=== PATIENT | male | born 1995 | race Caucasian/White ===

== ENCOUNTER → 2024-12-19 11:05 | Outpatient (CLI) | payer OTHER, SELFPAY ==
--- NOTE | 2024-12-19 11:07 | DI.RAD.S_ITS ---
PROCEDURE: XR SHOULDER LT MIN 2V INDICATIONS: left shoulder strain TECHNIQUE: Three views of the left shoulder were acquired. COMPARISON: None. FINDINGS: Bones: There are no osseous abnormalities. Acromioclavicular and glenohumeral joints: Normal in width and alignment without arthritic change Soft tissues: No soft tissue swelling, calcification or mass. IMPRESSION: Normal shoulder Dictated by: Gus Parker M.D. on 12/20/2024 at 9:15 Approved by: Gus Parker M.D. on 12/20/2024 at 9:15
== END ==
PROVIDERS: Referring Provider Nurse Practitioner Family; Visit Provider Nurse Practitioner Family
DX: S46.912A Strain of unspecified muscle, fascia and tendon at shoulder and upper arm level, left arm, initial encounter (principal); X58.XXXA Exposure to other specified factors, initial encounter
CPT/HCPCS: 73030

== ENCOUNTER 2025-02-06 00:31 | Emergency (ER) | payer SELFPAY ==
[2025-02-06 00:43] VITALS: BP 131/75; PULSE 97; RESP 18; TEMP 36.3; O2SAT 96; BMI 28.1
--- NOTE | 2025-02-06 06:28 | ED.SKABFB ---
HPI - Skin/Abscess/Foreign Bdy General Chief complaint: Skin/Abscess/Foreign Body Stated complaint: redness on both forearms Time Seen by Provider: 02/06/25 06:12 Source: patient Mode of arrival: Ambulatory History of Present Illness HPI narrative: 29yo male has complaint bilaeral arms skin rash for last weeks, no eczema or psoriasis recalled, no other areas affected, works at [employer], frequent hands arm washing. Sometimes itching, sometimes painful. Related Data Previous Rx's Medication Instructions Recorded cephalexin 500 mg capsule 500 mg PO BID #20 caps 01/05/25 hydrocortisone 1 % topical cream 1 applic topical BID-QID PRN 01/05/25 (Cortisone (hydrocortisone)) allergic reaction #28.4 grams mupirocin 2 % topical ointment 1 applic topical TID #22 grams 01/05/25 cephalexin 500 mg capsule 500 mg PO QID 7 days #28 caps 02/06/25 prednisone 20 mg tablet 40 mg (2 x 20 mg) PO DAILY 5 days 02/06/25 #10 tabs triamcinolone acetonide 0.1 % 1 applic topical BID #80 grams 02/06/25 topical ointment Allergies Allergy/AdvReac Type Severity Reaction Status Date / Time nka Allergy Unknown Uncoded 01/05/25 17:11 Patient History Social History (System 12/26/24 @ 09:02 by Jose Manuel Arnold) Smoking Status: Former smoker Smoking Status: Former smoker Exam Narrative Exam Narrative: GENERAL: Well-developed patient, in mild distress. HEAD: Atraumatic. Normocephalic. EYES: Pupils equal round and reactive. Extraocular motions intact. No scleral icterus. No injection or drainage. ENT: Nose without bleeding, purulent drainage. Throat without erythema, tonsillar hypertrophy or exudate. Airway patent. NECK: Trachea midline. Non tender CARDIOVASCULAR: Regular rate and rhythm without murmurs, gallops, or rubs. RESPIRATORY: Clear to auscultation. Breath sounds equal bilaterally. No wheezes, rales, or rhonchi. GASTROINTESTINAL: Abdomen soft, non-tender, nondistended. EXTREMITIES: No edema or joint tenderness. Full range of motion elbows wrist shoulders fingers shoulders. BACK: Nontender without deformity or crepitance. No flank tenderness. NEURO: AOx3. Motor functions grossly nonfocal SKIN: Bilateral forearm and arm redness with some scale, looks like atopic or contact dermatitis like changes, some honey exudate changes both elbows, less antecubital, consistent with impetigo, some erythema could be cellulitis. No scalp line skin changes, nor on either pinnae. Initial Vital Signs Initial Vital Signs: Vital Signs Temperature 97.4 F L 02/06/25 00:43 Pulse Rate 97 H 02/06/25 00:43 Respiratory Rate 18 02/06/25 00:43 Blood Pressure 131/75 02/06/25 00:43 Pulse Oximetry 96 02/06/25 00:43 Oxygen Delivery Method Room Air 02/06/25 00:43 Course Orders Ordered: Discontinued Medications Cephalexin HCl (Cephalexin 250 Mg Capsule) 500 mg PO NOW ONE Stop: 02/06/25 06:48 Last Admin: 02/06/25 07:10 Dose: 500 mg Documented By: KRISTEN Prednisone (Prednisone 20 Mg Tablet) 60 mg PO NOW ONE Stop: 02/06/25 06:48 Last Admin: 02/06/25 07:09 Dose: 60 mg Documented By: KRISTEN Vital Signs Vital signs: Vital Signs - 8 hr 02/06/25 00:43 Temperature 97.4 F L Pulse Rate 97 H Respiratory Rate 18 Blood Pressure 131/75 Pulse Oximetry 96 Oxygen Delivery Method Room Air MDM - Skin/Abscess/Foreign Bdy MDM Narrative Medical decision making narrative: BUE rash on exam looks like contact dermatitis or atopic dermatitis, some exudate and erythema consider impetigo or cellulitis superinefection component. Rx for prednisone, triamcinilone ointment, cephalexin, advised use of Eucerin moisturizer lotion, avoid harsh deergents that can dry the skin. Might need dermatology consult. Recheck with PCP next few days on above Rx regimen. Return precautions discussed. Discharge Plan Departure Patient Disposition: Home Clinical Impression: Atopic dermatitis, Cellulitis Activity Restrictions/Additional Instructions: Bilateral forearm and upper arm rash, some dry scale component and predominantly on the extensor surface, consider eczema (also called atopic dermatitis). Psoriasis can also look this way but you do not seem to have any scalp area lesions. In the area of both elbows you have some exudative changes, possible impetigo or cellulitis bacterial super infection component noted. Trial of steroids and antibiotics. Oral prednisone steroid for the next few days. Topical triamcinolone ointment twice daily also advised to the affected rash areas. Course of antibiotic cephalexin to take for the next 7 days. Use topical moisturizer lipid based such as Eucerin. Avoid drying soaps and detergents. Consider Dermatology referral. Sometimes if the rash etiology is not clear a biopsy might be performed, though hopefully you will respond to the above treatment if it is atopic dermatitis with infection, and hopefully a rash while resolve. Recheck with your regular doctor advised this next week on above therapies. Return earlier to this/nearest emergency department for any change worsening symptoms or any concerns prior. Call for new establish care visit with primary care provider, for new patients at [facility], call [phone]. Prescriptions: New cephalexin 500 mg capsule 500 mg PO QID 7 Days Qty: 28 0RF prednisone 20 mg tablet 40 mg PO DAILY 5 Days Qty: 10 0RF triamcinolone acetonide 0.1 % ointment 1 applic topical BID Qty: 80 1RF No Action mupirocin 2 % ointment 1 applic topical TID Qty: 22 0RF cephalexin 500 mg capsule 500 mg PO BID Qty: 20 0RF hydrocortisone [Cortisone (hydrocortisone)] 1 % cream 1 applic topical BID-QID PRN (Reason: allergic reaction) Qty: 28.4 0RF Referrals: Miscellaneous,Doctor, MD [Primary Care Provider] - Stand Alone Forms: Patient Portal/API/Survey
[2025-02-06 06:30] VITALS: BP 124/80; PULSE 91; RESP 17; O2SAT 98
[2025-02-06] MEDS: predniSONE 20 MG TABLET 60 MG PO (07:09)
[2025-02-06] MEDS: cephALEXin 250 MG CAPSULE 500 MG PO (07:10)
== END 2025-02-06 07:14 | disposition home or self-care (01) ==
PROVIDERS: Emergency Provider Emergency Medicine
DX: L20.9 Atopic dermatitis, unspecified (principal); L03.114 Cellulitis of left upper limb; L03.113 Cellulitis of right upper limb
CPT/HCPCS: 99283